=== PATIENT | female | born 1980 | race Asian ===

== ENCOUNTER → 2023-08-23 | Outpatient (CLI) | payer OTHER | END | disposition home or self-care (01) | LOC: RADMN 13:15 | PROVIDERS: ATTEND Chiropractor | DX: M19.011 Primary osteoarthritis, right shoulder (principal); M19.012 Primary osteoarthritis, left shoulder; M25.775 Osteophyte, left foot; M51.34 Other intervertebral disc degeneration, thoracic region; M47.812 Spondylosis without myelopathy or radiculopathy, cervical region; M51.37 Other intervertebral disc degeneration, lumbosacral region | CPT/HCPCS: 72040; 72070; 72100; 73030-TC; 73620-TC ==